=== PATIENT | female | born 1980 | race Caucasian/White ===

== ENCOUNTER 2018-08-13 07:39 | Day surgery (SDC) | payer BC, MEDICAID ==
[~2018-08-13 07:39] MED LIST: SEVOFLURANE 15 MIN
[2018-08-13 09:58] LABS: ADD MAN DIFF? NO
[2018-08-13 09:59] LABS: BASOPHILS % 0.2 % (0.0-2.0); EOSINOPHILS # 0.1 10^3/ul (0.0-0.5); EOSINOPHILS % 1.1 % (0.0-7.0); HEMATOCRIT 33.5 % (37.0-47.0); LYMPHOCYTES % 21.7 % (15.0-51.0); MEAN CORPUSCULAR HEMOGLOBIN 31.2 pg (29.0-33.0); MEAN CORPUSCULAR HGB CONC 32.8 g/dl (32.0-37.0); MEAN CORPUSCULAR VOLUME 94.9 fl (82.0-101.0); MEAN PLATELET VOLUME 10.8 fl (7.4-10.4); MONOCYTE # 0.3 10^3/ul (0.3-0.9); MONOCYTES % 5.8 % (0.0-11.0); NEUTROPHIL # 3.2 10^3/ul (1.6-7.5); PLATELET COUNT 160 10^3/UL (140-415); RED BLOOD COUNT 3.53 10^6/ul (4.20-5.40)
[2018-08-13 09:59] LABS: WHITE BLOOD COUNT 4.5 10^3/ul (4.8-10.8)
[2018-08-13] MEDS ORDERED: CEFAZOLIN 2 GM/50 ML (PMX) 50 ML IVPB (10:00)
[2018-08-13] MEDS ORDERED: LIDOCAINE 2% (SDV) 5 ML INJ (10:09)
[2018-08-13] MEDS ORDERED: CEFAZOLIN 1 GM INJ (10:10)
[2018-08-13] MEDS ORDERED: PROPOFOL 20 ML (10:10)
[2018-08-13] MEDS ORDERED: ONDANSETRON 4 MG INJ (10:10)
[2018-08-13] MEDS ORDERED: METOCLOPRAMIDE 10 MG INJ (10:10)
[2018-08-13] MEDS ORDERED: MEPERIDINE 100 MG INJ (10:10)
[2018-08-13] MEDS ORDERED: METOCLOPRAMIDE 10 MG INJ IV (10:30)
[2018-08-13] MEDS ORDERED: ONDANSETRON 4 MG INJ IV (10:30)
[2018-08-13] MEDS ORDERED: EPHEDrine SULFATE 50 MG/5 ML SYG IV (10:30)
[2018-08-13] MEDS ORDERED: DIPHENHYDRAMINE 50 MG INJ IV (10:30)
[2018-08-13] MEDS ORDERED: hydrALAzine 20 MG INJ IV (10:30)
[2018-08-13] MEDS ORDERED: OXYCODONE/ACETAMINOPHEN (5/325) TAB PO ×2 (10:30)
[2018-08-13] MEDS ORDERED: MEPERIDINE 25 MG INJ IV (10:30)
[2018-08-13] MEDS ORDERED: LABETALOL HCL 20MG INJ IV (10:30)
[2018-08-13] MEDS ORDERED: MIDAZOLAM 1 MG/ML 2 ML INJ IV (10:30)
[2018-08-13] MEDS ORDERED: FENTAnyl 50 MCG/ML VIAL IV ×3 (10:30)
[2018-08-13] MEDS ORDERED: OXYTOCIN 10 UNIT INJ (10:35)
[2018-08-13] MEDS ORDERED: NALOXONE (0.4 MG/ML) INJ (10:52)
== END 2018-08-13 12:47 | disposition home or self-care (01) ==
LOC: SDS 07:39
DX: O02.1 Missed abortion (principal)
CPT/HCPCS: 59820; 84703; 85025; 86900; 86901; 88305